=== PATIENT | female | born 1935 | race Caucasian/White ===

== ENCOUNTER 2016-10-21 14:29 | Emergency (ER) | payer MEDICARE, OTHER ==
[2016-10-21 14:36] VITALS: PULSE 70; RESP 18; TEMP 97.3
--- NOTE | 2016-10-21 14:43 | ED ---
General Adult HPI - General Chief complaint: Headache Stated complaint: headache (Fell 2 weeks ago) Time Seen by Provider: 10/21/16 14:41 Source: patient, RN notes reviewed, old records reviewed Mode of arrival: ambulatory Limitations: no limitations - History of Present Illness Initial comments: This is a 81-year-old female the ER for evaluation.Cozier status post fall. Patient had a spot off all week ago slipping on steps mechanical fall hitting head and neck, patient is complaining of headache has been ever since the getting worse, is taking Tylenol with no help. Patient also is on Plavix and aspirin. No neurological deficit no nausea vomiting - Related Data Home Medications Medication Instructions Recorded Confirmed Aspirin 325 mg PO DAILY 10/21/16 10/21/16 Cetirizine HCl [Zyrtec] 10 mg PO DAILY 10/21/16 10/21/16 Clopidogrel [Plavix] 75 mg PO DAILY 10/21/16 10/21/16 Fish Oil/Dha/Epa [Fish Oil 1,200 1 cap PO BID 10/21/16 10/21/16 mg Fish Oil] Garlic 1 tab PO BID 10/21/16 10/21/16 Gemfibrozil [Lopid] 600 mg PO AC-BID 10/21/16 10/21/16 Gluc/Theodore-MSM#1/C/Miki/Marty/Bor 1 tab PO BID 10/21/16 10/21/16 [Glucosamine-Chondroitin Tablet] Isosorbide Mononitrate ER [Imdur] 60 mg PO DAILY 10/21/16 10/21/16 Levothyroxine Sodium [Synthroid] 100 mcg PO DAILY 10/21/16 10/21/16 Lisinopril [Zestril] 10 mg PO DAILY 10/21/16 10/21/16 Metoprolol Tartrate [Lopressor] 25 mg PO BID 10/21/16 10/21/16 Vit A,C & E/Lutein/Minerals 1 tab PO DAILY 10/21/16 10/21/16 [Ocuvite with Lutein Tablet] metFORMIN HCL [Glucophage] 1,000 mg PO BID 10/21/16 10/21/16 Allergies Allergy/AdvReac Type Severity Reaction Status Date / Time pravastatin [From Pravachol] Allergy Chest Pain Verified 10/21/16 15:08 simvastatin [From Zocor] Allergy Chest Pain Verified 10/21/16 15:08 sulfamethoxazole Allergy Rash/Hives Verified 10/21/16 15:08 [From Bactrim] trimethoprim [From Bactrim] Allergy Rash/Hives Verified 10/21/16 15:08 morphine AdvReac Nausea & Verified 10/21/16 15:08 Vomiting Review of Systems ROS Statement: Those systems with pertinent positive or pertinent negative responses have been documented in the HPI. ROS Other: All systems not noted in ROS Statement are negative. Past Medical History Past Medical History: CVA/TIA, Diabetes Mellitus, GERD/Reflux, Hyperlipidemia, Hypertension, Thyroid Disorder History of Any Multi-Drug Resistant Organisms: None Reported Past Surgical History: Back Surgery, Heart Catheterization With Stent, Hysterectomy, Tubal Ligation Past Psychological History: No Psychological Hx Reported Smoking Status: Never smoker Past Alcohol Use History: None Reported Past Drug Use History: None Reported General Exam Limitations: no limitations General appearance: alert, in no apparent distress Head exam: Present: atraumatic, normocephalic, normal inspection Eye exam: Present: normal appearance, PERRL, EOMI. Absent: scleral icterus, conjunctival injection, periorbital swelling ENT exam: Present: normal exam, mucous membranes moist Neck exam: Present: normal inspection. Absent: tenderness, meningismus, lymphadenopathy Respiratory exam: Present: normal lung sounds bilaterally. Absent: respiratory distress, wheezes, rales, rhonchi, stridor Cardiovascular Exam: Present: regular rate, normal rhythm, normal heart sounds. Absent: systolic murmur, diastolic murmur, rubs, gallop, clicks GI/Abdominal exam: Present: soft, normal bowel sounds. Absent: distended, tenderness, guarding, rebound, rigid Extremities exam: Present: normal inspection, full ROM, normal capillary refill. Absent: tenderness, pedal edema, joint swelling, calf tenderness Back exam: Present: normal inspection Neurological exam: Present: alert, oriented X3, CN II-XII intact Psychiatric exam: Present: normal affect, normal mood Skin exam: Present: warm, dry, intact, normal color. Absent: rash Course Vital Signs 10/21/16 10/21/16 14:32 15:18 Temperature 97.3 F L 97.3 F L Pulse Rate 70 70 Respiratory 18 18 Rate Blood Pressure 188/89 155/77 O2 Sat by Pulse 97 98 Oximetry - Reevaluation(s) Reevaluation #1: 10/21/16 15:40 Patient's headache is improved Medical Decision Making - Medical Decision Making 81. ER status post fall, slip and fall mechanical, on Plavix, fall greater than 48 hours, patient's CT brain C-spine is negative for injury, will be given pain control - Radiology Data Radiology results: report reviewed (CT brain C-spine negative for acute disease) , image reviewed Disposition Clinical Impression: Fall, Headache, Head injury Disposition: HOME SELF-CARE Condition: Good Instructions: Acute Headache (ED) Referrals: Brooke Fernando MD [Primary Care Provider] - 1-2 days
[2016-10-21] MEDS ORDERED: HYDROcodone/APAP 5-325MG 1 EACH TAB PO STA (14:51)
--- NOTE | 2016-10-21 15:11 | CT ---
EXAMINATION TYPE: CT brain prince wolf con DATE OF EXAM: 10/21/2016 3:05 PM COMPARISON: NONE HISTORY: JOHN after fall x2 weeks ago. CT DLP: 1419.[address] of the brain was performed. The ventricles, basal cisterns and sulci overlying the cerebral convexities demonstrate mild to moder ate enlargement. There is no evidence for intracranial hemorrhage or sulcal effacement. There is decreased attenuatio n about the periventricular white matter and deep white matter of both cerebral hemispheres, compatib le with chronic small vessel ischemia. Focal remote insult right kirkpatrick radiata. No mass effects are seen. If symptoms persist consider MRI. Osseous calvarium is intact. IMPRESSION: 1. Age related atrophic and chronic small vessel ischemic change without acute intracranial process seen at this time. CT Cervical Spine: Unenhanced CT of the cervical spine was performed with bone and soft tissue window settings submitted . Coronal and sagittal reconstruction is obtained. There is normal alignment and prevertebral soft tissues. No evidence for acute cervical fracture . Scattered degenerative disc disease and spondylosis. Postsurgical fusion at C5-C7. Biapical scarring. IMPRESSION: 1. No evidence for acute fracture or subluxation of the cervical spine.
[2016-10-21 15:19] VITALS: BP 155/77
== END 2016-10-21 15:54 | disposition home or self-care (01) ==
LOC: EC 14:29
DX: S09.90XA Unspecified injury of head, initial encounter (principal); E07.9 Disorder of thyroid, unspecified; I10 Essential (primary) hypertension; E11.9 Type 2 diabetes mellitus without complications; Z79.84 Long term (current) use of oral hypoglycemic drugs; Z79.02 Long term (current) use of antithrombotics/antiplatelets; Z86.73 Personal history of transient ischemic attack (TIA), and cerebral infarction without residual deficits; Z88.2 Allergy status to sulfonamides; Z88.5 Allergy status to narcotic agent; Z88.8 Allergy status to other drugs, medicaments and biological substances; Z79.82 Long term (current) use of aspirin; Z79.899 Other long term (current) drug therapy; W18.09XA Striking against other object with subsequent fall, initial encounter
CPT/HCPCS: 70450; 72125; 99284

== ENCOUNTER → 2017-03-28 | Outpatient (CLI) | payer MEDICARE, OTHER ==
--- NOTE | 2017-03-28 14:23 | MM ---
Reason for exam: additional evaluation requested from prior study. Last mammogram was performed 1 year and 1 month ago. History: Patient is postmenopausal, has history of breast cancer at age 50, and history of high-risk lesion on a previous biopsy. Family history of premenopausal breast cancer in daughter at age 31 and breast cancer in maternal cousin. Lumpectomy of the left breast, 1985. Excisional biopsy of the left breast. 2 excisional biopsies of the right breast. Physical Findings: Nurse did not find any significant physical abnormalities on exam. MG 3D Diag Mammo W/Cad DIETER Bilateral CC and MLO view(s) were taken. Prior study comparison: February 18, 2016, bilateral MG 3d diag mammo w/cad DIETER. February 09, 2015, bilateral MG diagnostic mammo w CAD DIETER. The breast tissue is heterogeneously dense. This may lower the sensitivity of mammography. Finding: There are typically benign calcifications. There is a chronic nodularity bilaterally. There is no dominant lesion. No significant changes in finding since February 18, 2016 and February 09, 2015. These results were verbally communicated with the patient and result sheet given to the patient on 03/28/17. ASSESSMENT: Benign, BI-RAD 2 RECOMMENDATION: Routine screening mammogram of both breasts in 1 year.
== END | disposition home or self-care (01) ==
LOC: RADMAMWWP 13:18
PROVIDERS: ATTEND Surgery
DX: Z08 Encounter for follow-up examination after completed treatment for malignant neoplasm (principal); Z85.3 Personal history of malignant neoplasm of breast
CPT/HCPCS: G0204; G0279

== ENCOUNTER → 2017-04-07 | Outpatient (CLI) | payer MEDICARE, OTHER ==
[2017-04-07 13:59] LABS: CH 32.1; CHCM 33.7; HCT 37.8 % (34.0-46.0); HGB 12.1 gm/dL (11.4-16.0); MCH 30.7 pg (25.0-35.0); MCHC 32.1 g/dL (31.0-37.0); MCV 95.7 fL (80.0-100.0); Mean Platelet Volume 6.8; RBC 3.95 m/uL (3.80-5.40); RDW 13.4 % (11.5-15.5); WBC 5.8 k/uL (3.8-10.6)
[2017-04-07 14:13] LABS: Anion Gap 10 mmol/L; Blood Urea Nitrogen 21 mg/dL (7-17); Carbon Dioxide 23 mmol/L (22-30); Chloride 103 mmol/L (98-107); Non-African American GFR(MDRD) >60 (>60 ml/min/1.73 sqM); Potassium 5.1 mmol/L (3.5-5.1); Sodium 136 mmol/L (137-145)
== END | disposition home or self-care (01) ==
LOC: LABPAT 13:24
PROVIDERS: ATTEND Internal Medicine Interventional Cardiology
DX: Z01.812 Encounter for preprocedural laboratory examination (principal); I25.10 Atherosclerotic heart disease of native coronary artery without angina pectoris
CPT/HCPCS: 36415; 80051; 82565; 84520; 85027

== ENCOUNTER 2017-04-18 10:44 | Day surgery (SDC) | payer MEDICARE, OTHER ==
[2017-04-13 11:35] VITALS: BMI 25.7
[~2017-04-18 10:44] MED LIST: ALPRAZolam 0.25 MG TAB PO PRN; ALPRAZolam 0.5 MG TAB PO PRN; ASPIRIN 325 MG TAB PO STA; NITROGLYCERIN SL TABS 0.4 MG TAB SUBLINGUAL PRN; SODIUM CHLORIDE 0.9% 1,000 ML in EMPTY BAG 1 BAG IV ONE
[2017-04-18] MEDS ORDERED: ISOSORBIDE MONONITRATE ER 60 MG TAB.ER.24H PO STA (11:12)
[2017-04-18 11:17] VITALS: PULSE 59
[2017-04-18 11:32] LABS: Glucose,Whole Blood 82 mg/dL (75-99)
[2017-04-18] MEDS ORDERED: LIDOCAINE 2% INJ 20 MG/ML (20 ML MDV) ONE (11:55)
[2017-04-18] MEDS ORDERED: VERAPAMIL 2.5 MG/ML 2 ML AMP ONE (11:55)
[2017-04-18] MEDS ORDERED: HEPARIN SODIUM 1,000 UN/ML (10ML VL) ONE (11:56)
[2017-04-18] MEDS ORDERED: MIDAZOLAM 2 MG/2 ML VIAL ONE (12:09)
[2017-04-18] MEDS ORDERED: MIDAZOLAM 2 MG/2 ML VIAL IV ONE (12:21)
[2017-04-18] MEDS ORDERED: LIDOCAINE 2% INJ 20 MG/ML SQ ONE (12:25)
[2017-04-18] MEDS ORDERED: HEPARIN SODIUM 1,000 UN/ML (10ML VL) IV ONE (12:29)
[2017-04-18] MEDS ORDERED: VERAPAMIL SYRINGE (5 MG/10 ML) INTRAARTER ONE ×2 (12:29→12:39)
[2017-04-18] MEDS ORDERED: SODIUM CHLORIDE 0.9% 1,000 ML IV ONE (12:40)
[2017-04-18] MEDS ORDERED: IOHEXOL 350 MG/ML 125ML BOTTLE INJ ONE (12:42)
[2017-04-18] MEDS ORDERED: RX INFO: IV CONTRAST WAS GIVEN 1 EACH MISC MISCELLANE PRN (12:50)
[2017-04-18] MEDS ORDERED: SODIUM CHLORIDE 0.9% 1,000 ML IV SCH (13:00)
--- NOTE | 2017-04-18 13:37 | CC ---
CARDIAC CATHETERIZATION REPORT DATE OF SERVICE: 04/18/2017 PERFORMING PHYSICIAN: Iron Bolden MD, medical scribe. PROCEDURE PERFORMED: 1. Selective right and left coronary angiogram. 2. Left heart catheterization. 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 She is also known to have stenting of the left circumflex coronary artery. She underwent myocardial perfusion imaging stress test and that showed inferior ischemia. In view of that, she was brought today to undergo a heart catheterization. APPROACH: Right radial artery. COMPLICATION: None. LEVEL OF SEDATION: Moderate with sedation length of 22 minutes. PROCEDURE DESCRIPTION: After obtaining an informed consent, the patient was brought to the cardiac greens laborer. Right radial artery was cannulated. The right radial artery was cannulated using micropuncture technique and a micropuncture wire passed easily. Then I placed a 6- Romansh sheath in the right radial artery. Subsequently I did give the patient 2 mg of verapamil IA and 6000 units of heparin IV. After that, I did selective right and left coronary angiogram using JR4 and JL3.5 catheter. After that, I did left heart catheterization using a 5-Romansh pigtail catheter. The procedure was completed without any complication. SELECTIVE CORONARY ANGIOGRAM: 1. The right coronary artery is a large caliber vessel, it is a dominant vessel. The ostial right has a lesion appeared to be in the range of 70%. The mid right appeared to have mild disease only, but it is calcified. The RCA distally appeared to have mild disease only and bifurcates into PDA and PLV branches. They have mild diffuse disease only. 2. The left main is angiographically normal. It bifurcates into the left circumflex and left anterior descending artery. 3. The left circumflex is a large caliber vessel and it is a nondominant vessel. The proximal left circumflex appeared to have mild disease only. The mid left circumflex is stented with intermediate to severe in-stent restenoses. The left circumflex, right after the stent, gives rise into a large OM branch which has an ostial lesion seems to be in the range of 60%. The left circumflex distally appeared to have mild disease only. 4. The left anterior descending artery is 100% occluded in the proximal portion. HEMODYNAMICS: The left ventricular end-diastolic pressure was 12 mmHg and no gradient was identified across the aortic valve. CONCLUSION: 1. Heavily calcified right and left coronary systems. 2. Intermediate to severe disease involving the ostial right coronary artery. 3. Intermediate to severe disease involving the left circumflex, which seems to be in- stent restenosis. 4. Chronic total occlusion of the proximal left anterior descending artery. POSTPROCEDURE MANAGEMENT: 1. Maximize medical treatment at this point of time and follow up with the patient. 2. If the patient did not do good with medical treatment, I will consider doing PCI of the RCA and the circumflex. MMODL / IJN: [id number] /
[2017-04-18 16:35] VITALS: BP 135/65; RESP 18
== END 2017-04-18 18:05 | disposition home or self-care (01) ==
LOC: CATHCVL 10:44
PROVIDERS: ATTEND Internal Medicine Interventional Cardiology
DX: I25.110 Atherosclerotic heart disease of native coronary artery with unstable angina pectoris (principal); I25.84 Coronary atherosclerosis due to calcified coronary lesion; I25.82 Chronic total occlusion of coronary artery; I10 Essential (primary) hypertension; E78.5 Hyperlipidemia, unspecified; Z95.5 Presence of coronary angioplasty implant and graft; E11.9 Type 2 diabetes mellitus without complications; Z79.84 Long term (current) use of oral hypoglycemic drugs; Z82.49 Family history of ischemic heart disease and other diseases of the circulatory system; Z79.02 Long term (current) use of antithrombotics/antiplatelets; Z79.82 Long term (current) use of aspirin; Z79.899 Other long term (current) drug therapy; Z88.5 Allergy status to narcotic agent; Z88.8 Allergy status to other drugs, medicaments and biological substances
CPT/HCPCS: 99152; 99153; 93458; C1894; J2001; J2250; J1644; Q9967

== ENCOUNTER → 2019-08-07 | Outpatient (CLI) | payer MEDICARE, OTHER ==
--- NOTE | 2019-08-07 16:52 | XR ---
EXAMINATION TYPE: XR skull complete DATE OF EXAM: 08/07/2019 COMPARISON: NONE HISTORY: MRI clearance TECHNIQUE: 4 views FINDINGS: There is no evidence of radiopaque foreign body. Orbital margins are intact. Calvarium is i ntact with normal vascular and suture markings. IMPRESSION: Normal exam. No evidence of a metallic foreign body.
== END | disposition home or self-care (01) ==
LOC: RADXRMAIN 16:09
PROVIDERS: ATTEND Orthopaedic Surgery
DX: Z03.89 Encounter for observation for other suspected diseases and conditions ruled out (principal); Z98.890 Other specified postprocedural states
CPT/HCPCS: 70260

== ENCOUNTER 2021-06-30 14:45 | Emergency (ER) | payer MEDICARE, OTHER ==
[2021-06-30 15:34] VITALS: TEMP 98.5
[2021-06-30 18:57] LABS: Basophils # (A) 0.1 k/uL (0-0.2); Basophils % (A) 1 %; Eosinophils # (A) 0.1 k/uL (0-0.7); Eosinophils % (A) 2 %; HCT 42.5 % (34.0-46.0); Lymphocytes % (A) 26 %; MCHC 33.1 g/dL (31.0-37.0); MCV 90.6 fL (80.0-100.0); Monocytes # (A) 0.5 k/uL (0-1.0); Monocytes % (A) 6 %; Neutrophils % (A) 64 %; Platelet Count 351 k/uL (150-450); RBC 4.69 m/uL (3.80-5.40); WBC 7.8 k/uL (3.8-10.6)
[2021-06-30 19:06] LABS: ALT 15 U/L (4-34); AST 23 U/L (14-36); African American GFR (CKD) >90 (>60 ml/min/1.73 sqM); Albumin 4.1 g/dL (3.5-5.0); Alkaline Phosphatase 107 U/L (38-126); Anion Gap 12 mmol/L; Blood Urea Nitrogen 19 mg/dL (7-17); Calcium 9.6 mg/dL (8.4-10.2); Carbon Dioxide 24 mmol/L (22-30); Chloride 102 mmol/L (98-107); Glucose 89 mg/dL (74-99); Non-African American GFR(CKD) 81 (>60 ml/min/1.73 sqM); Potassium 3.4 mmol/L (3.5-5.1); Sodium 138 mmol/L (137-145); Total Bilirubin 0.6 mg/dL (0.2-1.3); Total Protein 7.3 g/dL (6.3-8.2)
[2021-06-30 19:44] VITALS: PULSE 65; RESP 18
[2021-06-30 19:51] VITALS: BP 164/98
--- NOTE | 2021-06-30 19:53 | ED ---
Wound/Laceration HPI - General Chief Complaint: Wound/Laceration Stated Complaint: L leg sore Time Seen by Provider: 06/30/21 18:20 Source: patient Mode of arrival: ambulatory Limitations: no limitations - History of Present Illness Initial Comments: 85-year-old female patient presents to the emergency department today for evaluation of wound to the left leg and one to the left elbow. Patient believes that the leg wound came from cutting herself with her toenail while in bed as she woke up with the wound when morning. States she's been treating it for 4 weeks. She did take Augmentin and Keflex states she doesn't feel like its healing fast enough. States he was feeling warm earlier today. Saw her doctor is instructed to come in for evaluation. She denies any fever or chills. States she is tolerating oral intake without difficulty. Denies vomiting or diarrhea. Denies any significant pain states it stings once in a while. She has been applying Neosporin. Denies history of MRSA. - Related Data Home Medications Medication Instructions Recorded Confirmed Acetaminophen Tab [Tylenol] 650 mg PO Q4H PRN 06/30/21 06/30/21 Aspirin EC [Ecotrin Low Dose] 40.5 mg PO DAILY 06/30/21 06/30/21 Levothyroxine Sodium [Levoxyl] 112 mcg PO DAILY 06/30/21 06/30/21 Metoprolol Succinate [Toprol XL] 25 mg PO DAILY 06/30/21 06/30/21 Previous Rx's Medication Instructions Recorded Doxycycline [Vibramycin] 100 mg PO BID #20 capsule 06/30/21 Allergies Allergy/AdvReac Type Severity Reaction Status Date / Time pravastatin [From Pravachol] Allergy Chest Pain Verified 06/30/21 18:41 simvastatin [From Zocor] Allergy Chest Pain Verified 06/30/21 18:41 Xoprgow-DTW-PvD Reductase Allergy Chest Pain Verified 06/30/21 18:41 Inhibitor [Yswfmxc-Jap-Mxq Reductase Inhibitor] sulfamethoxazole Allergy Rash/Hives Verified 06/30/21 18:41 [From Bactrim] trimethoprim [From Bactrim] Allergy Rash/Hives Verified 06/30/21 18:41 morphine AdvReac Nausea & Verified 06/30/21 18:41 Vomiting Review of Systems ROS Statement: Those systems with pertinent positive or pertinent negative responses have been documented in the HPI. ROS Other: All systems not noted in ROS Statement are negative. Past Medical History Past Medical History: CVA/TIA, Diabetes Mellitus, GERD/Reflux, Hyperlipidemia, Hypertension, Thyroid Disorder Last Myocardial Infarction Date:: 2003 History of Any Multi-Drug Resistant Organisms: None Reported Past Surgical History: Back Surgery, Heart Catheterization With Stent, Hysterectomy, Tubal Ligation Past Anesthesia/Blood Transfusion Reactions: No Reported Reaction Date of Last Stent Placement:: 2003 Past Psychological History: No Psychological Hx Reported Smoking Status: Former smoker Past Alcohol Use History: None Reported Past Drug Use History: None Reported - Past Family History Sister(s) Family Medical History: Cancer Daughter(s) Family Medical History: Cancer General Exam Limitations: no limitations General appearance: alert, in no apparent distress, other (This is a well- developed, well-nourished elderly female patient in no acute distress.) ENT exam: Present: normal exam, normal oropharynx, mucous membranes moist Respiratory exam: Present: normal lung sounds bilaterally. Absent: respiratory distress, wheezes, rales, rhonchi, stridor Cardiovascular Exam: Present: regular rate, normal rhythm, normal heart sounds. Absent: systolic murmur, diastolic murmur, rubs, gallop, clicks Extremities exam: Present: full ROM, normal capillary refill, other (There is scabbed lesion to the left lateral leg, mild surrounding skin discoloration. No redness. Scabbed lesion to the left elbow, no tenderness, no drainage, no erythema. ). Absent: normal inspection, tenderness, pedal edema, joint swelling, calf tenderness Neurological exam: Present: alert, oriented X3, CN II-XII intact Psychiatric exam: Present: normal affect, normal mood Skin exam: Present: warm, dry, intact, normal color. Absent: rash Course Vital Signs 06/30/21 06/30/21 15:31 19:39 Temperature 98.5 F Pulse Rate 80 65 Respiratory 20 18 Rate Blood Pressure 164/98 O2 Sat by Pulse 98 97 Oximetry Medical Decision Making - Medical Decision Making 85-year-old female patient presents for evaluation of slow healing wound to the left lower leg. Physical examination did reveal scabbed lesion with mild surrounding skin discoloration most likely due to healing. Vascular status is intact. She denies any fevers. She is tolerating oral intake. We will try doxycycline. She is instructed to follow-up with her primary care physician and possibly wound care center of her symptoms do not start improving over the next week. Return parameters were discussed in detail. She verbalizes understanding and agrees with this plan. My attending is Dr. Mishra. - Lab Data Result diagrams: 06/30/21 18:50 06/30/21 18:50 Lab Results 06/30/21 06/30/21 06/30/21 Range/Units 18:50 18:50 18:50 WBC 7.8 (3.8-10.6) k/uL RBC 4.69 (3.80-5.40) m/uL Hgb 14.0 (11.4-16.0) gm/dL Hct 42.5 (34.0-46.0) % MCV 90.6 (80.0-100.0) fL MCH 30.0 (25.0-35.0) pg MCHC 33.1 (31.0-37.0) g/dL RDW 13.0 (11.5-15.5) % Plt Count 351 (150-450) k/uL MPV 7.0 Neutrophils % 64 % Lymphocytes % 26 % Monocytes % 6 % Eosinophils % 2 % Basophils % 1 % Neutrophils # 5.0 (1.3-7.7) k/uL Lymphocytes # 2.0 (1.0-4.8) k/uL Monocytes # 0.5 (0-1.0) k/uL Eosinophils # 0.1 (0-0.7) k/uL Basophils # 0.1 (0-0.2) k/uL Sodium 138 (137-145) mmol/L Potassium 3.4 L (3.5-5.1) mmol/L Chloride 102 (98-107) mmol/L Carbon Dioxide 24 (22-30) mmol/L Anion Gap 12 mmol/L BUN 19 H (7-17) mg/dL Creatinine 0.67 (0.52-1.04) mg/dL Est GFR (CKD-EPI)AfAm >90 (>60 ml/min/1.73 sqM) Est GFR (CKD-EPI)NonAf 81 (>60 ml/min/1.73 sqM) Glucose 89 (74-99) mg/dL Plasma Lactic Acid William 1.2 (0.7-2.0) mmol/L Calcium 9.6 (8.4-10.2) mg/dL Total Bilirubin 0.6 (0.2-1.3) mg/dL AST 23 (14-36) U/L ALT 15 (4-34) U/L Alkaline Phosphatase 107 (38-126) U/L Total Protein 7.3 (6.3-8.2) g/dL Albumin 4.1 (3.5-5.0) g/dL Disposition Clinical Impression: Leg wound, left Disposition: HOME SELF-CARE Condition: Good Instructions (If sedation given, give patient instructions): Chronic Wound Care (ED) Additional Instructions: Keep wound clean and dry. Cover while our in public. Follow-up with your primary care physician for recheck in 1-2 days. Wound care. Wound seems to worsen. Return for any new, worsening, or concerning symptoms. Prescriptions: Doxycycline [Vibramycin] 100 mg PO BID #20 capsule Is patient prescribed a controlled substance at d/c from ED?: No Referrals: Brooke Fernando MD [Primary Care Provider] - 1-2 days Time of Disposition: 19:52
== END 2021-06-30 19:59 | disposition home or self-care (01) ==
LOC: EC 14:45
DX: S81.802A Unspecified open wound, left lower leg, initial encounter (principal); I10 Essential (primary) hypertension; I25.2 Old myocardial infarction; E07.9 Disorder of thyroid, unspecified; E11.9 Type 2 diabetes mellitus without complications; Z87.891 Personal history of nicotine dependence; Z88.8 Allergy status to other drugs, medicaments and biological substances; Z86.73 Personal history of transient ischemic attack (TIA), and cerebral infarction without residual deficits; Z88.2 Allergy status to sulfonamides; Z88.5 Allergy status to narcotic agent; Z79.82 Long term (current) use of aspirin; Z79.899 Other long term (current) drug therapy; Z79.890 Hormone replacement therapy; W26.8XXA Contact with other sharp object(s), not elsewhere classified, initial encounter
CPT/HCPCS: 36415; 80053; 83605; 85025; 99283